=== PATIENT | female | born 1970 | race Caucasian/White ===

== ENCOUNTER 2018-05-03 14:21 | Inpatient (IN) | payer BC, OTHER ==
[~2018-05-03] VITALS: Ht 167.6 cm; Wt 72.6 kg
[2018-05-03 17:36] LABS: *AMPHETAMINE, URINE NEGATIVE (NEGATIVE); *BARBITURATE, URINE NEGATIVE (NEGATIVE); *CANNABINOID, URINE NEGATIVE (NEGATIVE); *COCCAINE, URINE NEGATIVE (NEGATIVE); *OPIATE, URINE NEGATIVE (NEGATIVE); *PHENCYCLIDINE SCREEN,URINE NEGATIVE (NEGATIVE)
[2018-05-03] MEDS ORDERED: AMOX-430 PO (17:42)
[2018-05-03] MEDS ORDERED: LORA0.5T PO (17:42)
[2018-05-03] MEDS ORDERED: PANT40TA4 PO (17:42)
[2018-05-03] MEDS ORDERED: MOXI400T PO (17:42)
[2018-05-03] MEDS ORDERED: CLID1CAP PO (17:42)
[2018-05-03] MEDS ORDERED: THIA100T74 PO (17:42)
[2018-05-03] MEDS ORDERED: ALBU18HF2 INH (17:42)
[2018-05-03] MEDS ORDERED: ONDA4TAB11 PO (17:42)
[2018-05-03] MEDS ORDERED: MAG HYDROX/AL HYDROX/SIMETH 30 ML LIQUID UDC PO PRN (19:15)
[2018-05-03] MEDS ORDERED: LORAZEPAM 2 MG/1 ML VIAL IM PRN (19:15)
[2018-05-03] MEDS ORDERED: IBUPROFEN 600 MG TABLET PO PRN (19:15)
[2018-05-03] MEDS ORDERED: THIAMINE HCL 200 MG/2 ML VIAL IM ONE (19:15)
[2018-05-03] MEDS ORDERED: LORAZEPAM 0.5 MG TABLET PO PRN (19:15)
[2018-05-03] MEDS ORDERED: MAGNESIUM HYDROXIDE 30 ML LIQUID UDC PO PRN (19:15)
[2018-05-03] MEDS ORDERED: ONDANSETRON 4 MG/2 ML VIAL IM PRN (19:15)
[2018-05-03] MEDS ORDERED: LOPERAMIDE HCL 2 MG CAPSULE PO PRN ×2 (19:15)
[2018-05-03] MEDS ORDERED: ACETAMINOPHEN 325 MG TABLET PO PRN (19:15)
[2018-05-03] MEDS ORDERED: MIRALAX 17 GM POWD.PACK PO PRN (19:15)
[2018-05-03 19:37] LABS: *URINE HCG, QUAL NEGATIVE (NEGATIVE)
[2018-05-03 20:00] VITALS: BP 114/74
[2018-05-03 20:09] LABS: BASOPHILS # (AUTO) 0.1 K/uL (0.0-8.0); BASOPHILS % (AUTO) 1.1 % (0.0-2.0); EOSINOPHILS # (AUTO) 0.1 K/uL (0.0-0.7); EOSINOPHILS % (AUTO) 1.1 % (0.0-7.0); HEMATOCRIT 43.5 % (31.2-41.9); HEMOGLOBIN 14.9 g/dL (10.9-14.3); LYMPHOCYTES # (AUTO) 1.5 K/uL (20.0-40.0); MEAN CORPUSCULAR HEMOGLOBIN 35.2 uug (24.7-32.8); MEAN CORPUSCULAR HGB CONC 34 g/dL (32.3-35.6); MEAN CORPUSCULAR VOLUME 102.8 fL (75.5-95.3); MONOCYTES # (AUTO) 0.4 K/uL (2.0-10.0); MONOCYTES % (AUTO) 7.2 % (0.0-11.0); NEUTROPHILS # (AUTO) 2.9 K/uL (1.8-8.9); NEUTROPHILS % (AUTO) 60.6 % (38.5-71.5); PLATELET COUNT (AUTO) 179 K/uL (179-408); RED BLOOD CELL COUNT(AUTO) 4.23 MIL/uL (3.63-4.92); WHITE BLOOD COUNT (AUTO) 4.9 K/uL (3.8-11.8)
[2018-05-03] MEDS: TRAZODONE 50 MG TABLET PO PRN (20:14)
[2018-05-03] MEDS: ONDANSETRON ODT 4 MG TAB.RAPDIS SL PRN (20:14)
[2018-05-03] MEDS: CLONIDINE HCL 0.1 MG TABLET PO PRN (20:14)
[2018-05-03] MEDS: HYDROXYZINE PAMOATE 25 MG CAPSULE PO PRN (20:14)
[2018-05-03] MEDS: LORAZEPAM 0.5 MG TABLET PO PRN ×2 (20:14→22:48)
[2018-05-03 20:27] LABS: BILIRUBIN,TOTAL 0.9 mg/dL (0.2-1.0); CREATININE 1.1 mg/dL (0.6-1.3); POTASSIUM 3.5 mmol/L (3.5-5.1); TOTAL PROTEIN, SERUM 6.7 g/dL (6.4-8.2)
[2018-05-03 20:38] LABS: THYROID STIMULATING HORMONE 1.136 mIU/mL (0.358-3.740)
[2018-05-04] MEDS: LORAZEPAM 0.5 MG TABLET PO PRN ×2 (00:49→02:50)
[2018-05-04 02:47] VITALS: BP 106/70
[2018-05-04] MEDS: HYDROXYZINE PAMOATE 25 MG CAPSULE PO PRN ×2 (02:54→20:10)
[2018-05-04] MEDS: CLONIDINE HCL 0.1 MG TABLET PO PRN (02:54)
[2018-05-04 04:00] VITALS: BP 98/58
[2018-05-04] MEDS ORDERED: 5 DAY TAPER VALIUM-SERENITY PROTOCOL PO PRN (06:00)
[2018-05-04 08:13] VITALS: BP 97/56
[2018-05-04] MEDS ORDERED: FOLIC ACID 1 MG TABLET PO SCH (09:00)
[2018-05-04] MEDS ORDERED: TUBERCULIN,PURIF.PROT.DERIV. 5 TU/0.1 ML TEST ID ONE (09:00)
[2018-05-04] MEDS ORDERED: THIAMINE HCL 100 MG TABLET PO SCH (09:00)
[2018-05-04] MEDS ORDERED: MULTIVITAMINS,THERAPEUTIC TABLET PO SCH (09:00)
[2018-05-04] MEDS: DIAZEPAM 10 MG TABLET PO SCH ×3 (09:27→21:00)
[2018-05-04] MEDS: ONDANSETRON ODT 4 MG TAB.RAPDIS SL PRN ×3 (09:36→20:10)
[2018-05-04] MEDS ORDERED: MOXIFLOXACIN HCL 400 MG PO SCH (10:15)
[2018-05-04] MEDS ORDERED: ALBUTEROL SULFATE 2.5 MG/3 ML NEBU NEB PRN (11:00)
[2018-05-04] MEDS ORDERED: ALBUTEROL SULFATE 2.5 MG/3 ML NEBU NEB SCH (11:00)
[2018-05-04] MEDS ORDERED: CIPROFLOXACIN HCL 250 MG TABLET PO ONE (11:15)
[2018-05-04] MEDS: CIPROFLOXACIN HCL 250 MG TABLET PO SCH ×2 (12:10→20:10)
[2018-05-04] MEDS: CLIDINIUM BR/CHLORDIAZEPOXIDE CAPSULE PO SCH ×2 (12:10→17:37)
[2018-05-04 12:29] VITALS: BP 113/77
[2018-05-04] MEDS ORDERED: ALBUTEROL SULFATE 8 GM HFA.AER.AD INH SCH (13:00)
[2018-05-04 16:43] VITALS: BP 133/91
[2018-05-04] MEDS: ALBUTEROL SULFATE 2.5 MG/3 ML NEBU NEB PRN (17:02)
[2018-05-04 20:00] VITALS: BP 128/92
[2018-05-04] MEDS: TRAZODONE 50 MG TABLET PO PRN (20:10)
[2018-05-05] VITALS: BP 127/79
[2018-05-05 01:18] VITALS: BP 127/79
[2018-05-05] MEDS: CLONIDINE HCL 0.1 MG TABLET PO PRN (01:18)
[2018-05-05] MEDS: ALBUTEROL SULFATE 2.5 MG/3 ML NEBU NEB PRN (01:30)
[2018-05-05] MEDS ORDERED: PANTOPRAZOLE SODIUM 40 MG TABLET.DR PO SCH (07:00)
[2018-05-05] MEDS ORDERED: DIAZEPAM 5 MG TABLET PO SCH (09:00)
[2018-05-05 09:07] LABS: HEPATITIS B SURFACE AG Negative (Negative)
[2018-05-06] MEDS ORDERED: DIAZEPAM 5 MG TABLET PO SCH (09:00)
[2018-05-07] MEDS ORDERED: DIAZEPAM 5 MG TABLET PO SCH (09:00)
[2018-05-08] MEDS ORDERED: DIAZEPAM 5 MG TABLET PO SCH (09:00)
== END 2018-05-05 07:40 | disposition left against medical advice (07) | DRG 894 ==
LOC: SRC 15:42
PROVIDERS: ADMIT Internal Medicine Addiction Medicine; ATTEND Internal Medicine Addiction Medicine
PROC: HZ2ZZZZ Detoxification Services for Substance Abuse Treatment (ICD-10-PCS; principal; 2018-05-03)
DX: F10.230 Alcohol dependence with withdrawal, uncomplicated (principal); Y90.7 Blood alcohol level of 200-239 mg/100 ml; J45.909 Unspecified asthma, uncomplicated; G43.809 Other migraine, not intractable, without status migrainosus; Z86.011 Personal history of benign neoplasm of the brain; F41.1 Generalized anxiety disorder; Z87.19 Personal history of other diseases of the digestive system
CPT/HCPCS: 36415; 80307; 80346; 83690; 83735; 84443; 84703; 85025; 86580; 86592; 86705; 86803; 87340; 87806; 94640; 94664; A4663; G0480; J2405; Q0162